=== PATIENT | male | born 1940 | race Caucasian/White ===

== ENCOUNTER 2023-11-22 10:00 | Emergency (ER) | payer OTHER ==
[~2023-11-22] VITALS: Ht 177.8 cm; Wt 76.1 kg
[2023-11-22 10:54] LABS: BILIRUBIN, URINE NEGATIVE (negative); BLOOD/HGB, URINE NEGATIVE (Negative); KETONE, URINE NEGATIVE (Negative); LEUK ESTERASE, URINE NEGATIVE (negative); NITRITE, URINE NEGATIVE (negative); PH, URINE 5.5 (5-7)
[2023-11-22] MEDS ORDERED: CARBIDOPA-LEVO1 EACH PO (11:58)
[2023-11-22] MEDS ORDERED: ACETAMINOPHEN 500 MG TAB PO ONE (13:30)
[2023-11-22] MEDS ORDERED: PHENAZOPYRIDINE HCL 95 MG TAB PO ONE (13:30)
[2023-11-22 13:54] VITALS: BP 115/60
== END 2023-11-22 13:54 | disposition home or self-care (01) ==
LOC: ED 10:00
PROVIDERS: Emergency Medicine
DX: R30.0 Dysuria (principal); Z79.899 Other long term (current) drug therapy
CPT/HCPCS: 51798; 81003; 99283-25; A9270